=== PATIENT | male | born 2000 | race Caucasian/White ===

== ENCOUNTER 2024-02-09 14:31 | Outpatient (CLI) | payer BC, SELFPAY | END 2024-02-09 14:32 | disposition home or self-care (01) | LOC: AMB 03-03 11:56 | PROVIDERS: Visit Provider Emergency Medicine Emergency Medical Services | DX: S59.911A Unspecified injury of right forearm, initial encounter (principal); W01.0XXA Fall on same level from slipping, tripping and stumbling without subsequent striking against object, initial encounter; Y93.89 Activity, other specified; Y92.830 Public park as the place of occurrence of the external cause | CPT/HCPCS: A0425; A0427 ==